=== PATIENT | male | born 1955 | race Caucasian/White ===

== ENCOUNTER 2018-03-16 11:22 | Emergency (ER) | payer SELFPAY ==
--- NOTE | 2018-03-16 12:08 | EDM.PDOC ---
ED HPI GENERAL MEDICAL PROBLEM - General Chief Complaint: General Stated Complaint: THROAT IS SWOLLEN/INFECTION IN LEG? Time Seen by Provider: 03/16/18 11:58 Source of Information: Reports: Patient, Family, RN Notes Reviewed History Limitations: Reports: No Limitations - History of Present Illness INITIAL COMMENTS - FREE TEXT/NARRATIVE: 62-year-old gentleman presents to the emergency department today with redness and warmth to his right lower extremity. He has another issue in that his family is concerned about his alcohol consumption he has went to treatment and detox in the past however he continues to have daily drinking he would like some benzodiazepines to help with his drinking he has been to the [facility] benzodiazepine misuse. I do talk to him about detox of which he declines. He denies any fevers states he is short of breath but he does have a history of hypersensitive pneumonitis and admits to having chest pain for the last week no nausea vomiting or diaphoresis - Related Data Allergies Allergy/AdvReac Type Severity Reaction Status Date / Time No Known Allergies Allergy Verified 03/16/18 11:45 Home Meds: Home Meds Albuterol [Proventil HFA] 2 puff INH Q4H PRN 03/16/18 [History] Albuterol/Ipratropium [DuoNeb 3.0-0.5 MG/3 ML] 3 ml .XX Q6H PRN 03/16/18 [ History] Alendronate Sodium [Alendronate] 10 mg PO WEEKLY 03/16/18 [History] Candesartan [Atacand] 16 mg PO DAILY 03/16/18 [History] Esomeprazole [NexIUM] 20 mg PO DAILY 03/16/18 [History] predniSONE [Prednisone] 20 mg PO DAILY 03/16/18 [History] Past Medical History Cardiovascular History: Reports: Hypertension Respiratory History: Reports: Other (See Below) Other Respiratory History: hypersensitivity pneumonitis Gastrointestinal History: Reports: GERD Musculoskeletal History: Reports: Arthritis Psychiatric History: Reports: Addiction Endocrine/Metabolic History: Reports: Obesity/BMI 30+ - Past Surgical History Musculoskeletal Surgical History: Reports: Hip Replacement Social & Family History - Tobacco Use Smoking Status *Q: Never Smoker - Caffeine Use Caffeine Use: Reports: Coffee - Alcohol Use Days Per Week of Alcohol Use: 7 Number of Drinks Per Day: 8 Total Drinks Per Week: 56 Date of Last Drink: 03/15/18 Time of Last Drink: 23:00 - Recreational Drug Use Recreational Drug Use: No ED ROS GENERAL - Review of Systems Review Of Systems: See Below Constitutional: Reports: No Symptoms HEENT: Reports: No Symptoms Respiratory: Reports: No Symptoms Cardiovascular: Reports: No Symptoms GI/Abdominal: Reports: No Symptoms Musculoskeletal: Reports: No Symptoms Skin: Reports: Pallor, Rash Neurological: Reports: No Symptoms ED EXAM, GENERAL - Physical Exam Exam: See Below Free Text/Narrative:: The right leg is erythematous on the anterior portion of the lower extremity he does have chronic venous stasis dermatitis bilaterally he does have an open wound distal aspect of the great toe on the right foot, pedal pulse is +2, it is warm to the touch compared to the left leg there is +2 edema bilaterally no tenderness to palpation Exam Limited By: No Limitations General Appearance: Alert, WD/WN, No Apparent Distress Respiratory/Chest: No Respiratory Distress, Lungs Clear, Normal Breath Sounds, No Accessory Muscle Use Cardiovascular: Regular Rate, Rhythm, No Murmur GI/Abdominal: Soft, Non-Tender Course - Vital Signs Last Recorded V/S: Last Vital Signs Temp 97.7 F 03/16/18 11:43 Pulse 113 H 03/16/18 11:43 Resp 20 03/16/18 11:43 BP 164/85 H 03/16/18 11:43 Pulse Ox 94 L 03/16/18 11:43 - Orders/Labs/Meds Labs: Laboratory Tests 03/16/18 03/16/18 03/16/18 Range/Units 12:05 12:14 12:14 WBC 8.1 (4.5-11.0) K/uL RBC 4.35 (4.30-5.90) M/uL Hgb 15.4 H (12.0-15.0) g/dL Hct 44.7 (40.0-54.0) % MCV 103 H (80-98) fL MCH 35 H (27-31) pg MCHC 35 (32-36) % Plt Count 162 (150-400) K/uL Neut % (Auto) 80 H (36-66) % Lymph % (Auto) 7 L (24-44) % Schuyler % (Auto) 12 H (2-6) % Eos % (Auto) 0 L (2-4) % Baso % (Auto) 1 (0-1) % Sodium 137 L (140-148) mmol/L Potassium 3.9 (3.6-5.2) mmol/L Chloride 99 L (100-108) mmol/L Carbon Dioxide 29 (21-32) mmol/L Anion Gap 12.9 (5.0-14.0) mmol/L BUN 16 (7-18) mg/dL Creatinine 1.1 (0.8-1.3) mg/dL Est Cr Clr Drug Dosing 70.97 mL/min Estimated GFR (MDRD) > 60 (>60) Glucose 206 H (74-106) mg/dL Calcium 9.2 (8.5-10.1) mg/dL Troponin I < 0.017 (0.000-0.056) ng/mL Departure - Departure Time of Disposition: 13:24 Disposition: Home, Self-Care 01 Condition: Fair Clinical Impression: Cellulitis of right lower leg - Discharge Information Referrals: Irma Duran MD [Primary Care Provider] - Forms: ED Department Discharge Additional Instructions: Increase to Bactrim to one tablet twice a day until you're reevaluated by your physician on Saturday, use the Ativan as prescribed for your alcohol withdrawal, call return to the emergency department with worsening of symptoms - Assessment/Plan Plan: Assessment Acuity = acute Site and laterality = right leg lower extremity cellulitis Etiology = probable bacterial cause Manifestations = none Location of injury = Home Lab values = CBC, BMP unremarkable , troponin negative Plan He currently uses Bactrim prophylactically couple times a week because the prednisone use for increases Bactrim to one tablet twice a day he has a follow- up with his primary care provider on Saturday of this next week I did granted him prescription for Ativan 1 mg 1 tab by mouth 3 times a day when necessary total #10 to help with his alcohol issues This note was dictated using [email or web address] voice recognition software please call with any questions on syntax or grammar.
== END 2018-03-16 13:48 | disposition home or self-care (01) ==
LOC: JP.ED 11:22
DX: L03.115 Cellulitis of right lower limb (principal); I10 Essential (primary) hypertension; K21.9 Gastro-esophageal reflux disease without esophagitis; Z79.899 Other long term (current) drug therapy
CPT/HCPCS: 36415; 80048; 84484; 85025; 99283